=== PATIENT | male | born 1990 | race Caucasian/White ===

== ENCOUNTER 2024-07-08 08:47 | Emergency (ER) | payer OTHER ==
[~2024-07-08] VITALS: Ht 172.7 cm; Wt 61.2 kg
[2024-07-08] MEDS ORDERED: DOCU100 PO (12:01)
[2024-07-08] MEDS ORDERED: HYDCOR2.5C PR (12:01)
== END 2024-07-08 12:08 | disposition home or self-care (01) ==
LOC: ER 08:47
DX: K64.4 Residual hemorrhoidal skin tags (principal); Z79.899 Other long term (current) drug therapy
CPT/HCPCS: 99283